=== PATIENT | female | born 1955 | race Hispanic/Latino ===

== ENCOUNTER → 2018-08-05 | Day surgery (SDC) | payer OTHER ==
[~2018-08-05] MED LIST: ALENDRONATE SOD70 MG PO; DOXYCYCLINE HY100 MG PO; FAMOTIDINE20 MG PO; PROPOFOL IV EMULSION 10 MG/ML 50 ML VIAL ONE; SIMVASTATIN40 MG PO
--- OUTSIDE RECORDS SUMMARY | 2018-08-05 06:23 | XMS REPORT ---
Author Organization Unknown Address [address] [place] [address] Phone [phone] Care Team Providers Care Hog Dropper Name Role Phone Lucio Fitch Unavailable Unavailable Allergies Code Code System Name Reaction Severity Status Onset No Known Allergies Active NKDA Medications Name Status Start Date Stop Date alendronate 70 mg tablet Take 1 tablet every week by oral route for 90 days. Active Not available doxycycline hyclate 50 mg capsule Take 1 capsule every day by oral route for 30 days. Completed 08/05/2017 08/05/2017 Estrace 0.01% (0.1 mg/gram) vaginal cream aplicar 1 aplicador dos veces cada semana al acostarse Active Not available fluticasone 50 mcg/actuation nasal spray,suspension aplicar dos esprays en cada fosa nasal geovani vez cada nelly Active Not available ibuprofen 600 mg tablet Take 1 tablet 3 times a day by oral route as needed for 30 days. Completed 08/05/2017 lidocaine 3 %-hydrocortisone 0.5 % rectal cream Completed 10/13/2016 metoclopramide 10 mg tablet Completed 10/29/2016 metronidazole 0.75 % topical cream use as directed Completed 08/05/2017 minocycline 100 mg capsule Completed 04/05/2017 eytobcxy-mbvushyak-fzuayhsx 3.5 mg/mL-10,000 unit/mL-0.1% eye drops use as directed prn Completed 08/05/2017 simvastatin 20 mg tablet Take 1 tablet every day by oral route for 90 days. Active Not available tramadol 50 mg tablet Completed 11/09/2016 Zostavax (PF) 19,400 unit/0.65 mL subcutaneous suspension Completed 10/13/2016 Problems Name Status Onset Date Source Pure Hypercholesterolemia Active 08/22/2015 History Disorder of Bone Unknown 08/22/2015 History Residual Hemorrhoidal Skin Tags Active 08/30/2015 History Senile Osteopenia Active 02/24/2016 Deviated Nasal Septum Active 04/06/2017 Mixed Hyperlipidemia Active 08/05/2017 Procedures Date Name Performed by 10/13/2016 CT, Abdomen, W/o Contrast [facility] ([facility]) [address] [place] [address] (Work Place) 10/20/2016 CT, Abdomen + Pelvis, W/o Contrast [facility] ([facility]) [address] [place] [address] (Work Place) 10/29/2016 US, Abdomen + Pelvis [facility] [address] [facility] [address] [place] [address] (Work Place) 11/04/2016 US, Abdomen + Pelvis [facility] [address] [facility] [address] [place] [address] (Work Place) 11/09/2016 MRI, Liver, W/o Contrast [facility] ([facility]) [address] [place] [address] (Work Place) 04/05/2017 XR, Sinuses [facility] ([facility]) [address] [place] [address] (Work Place) 02/14/2017 Mammogram, Screening Information not available Notes: 08/30/2015: Left breast surgery; Surgery Date: 2001 Partial hysterectomy; Surgery Date: 2001 Lab Results Date Name Specimen Result Interpretation Description Value Range Status Address 04/05/2017 CMP, Serum or Plasma Alt 16 U/L 0-55 U/L [facility]: [address] Ast 19 U/L 5-34 U/L [facility]: [address] Bun 11.5 mg/dL 9.8-20.1 mg/dL [facility]: [address] Alk Phos 63 unit/L 40-150 unit/L [facility]: [address] Glucose 94 mg/dL 70-99 mg/dL [facility]: [address] Albumin 3.7 g/dL 3.5-5.0 g/dL [facility]: [address] Creatinine 0.69 mg/dL 0.57-1.11 mg/dL [facility]: [address] [place] [address], [place] eGFR Non- >60 mL/min/1.73m2 >60 mL/min/1.73m2 [facility]: [address] Total Bilirubin 0.3 mg/dL 0.2-1.2 mg/dL [facility]: [address] eGFR - >60 mL/min/1.73m2 >60 mL/min/1.73m2 [facility]: [address] Sodium 141 mEq/L 136-145 mEq/L [facility]: [address] Potassium 4.1 mEq/L 3.5-5.1 mEq/L [facility]: [address] High Chloride 110 mmol/L 98-107 mmol/L [facility]: [address] Total Protein 6.7 g/dL 6.4-8.3 g/dL [facility]: [address] Calcium 8.8 mg/dL 8.4-10.2 mg/dL [facility]: [address] Low Co2 22.8 mmol/L 23.0-31.0 mmol/L [facility]: [address] Anion Gap 8 calc [facility]: [address] 04/05/2017 Lipid Panel, Serum Hdl 58 mg/dL 40-60 mg/dL [facility]: [address] Triglyceride 130 mg/dL 0-149 mg/dL [facility]: [address] VLDL Calc. 26 mg/dL [facility]: [address] cholesterol/HDL Ratio 2.6 mg/dL [facility]: [address] non-HDL Cholesterol Calc. 94 mg/dL 0-160 mg/dL [facility]: [address] Cholesterol 152 mg/dL 0-199 mg/dL [facility]: [address] LDL Calc. 68 mg/dL 0-130 mg/dL [facility]: [address] [place] [address], [place] 10/29/2016 Carcinoembryonic Ag, Quant, Serum or Plasma Normal Cea 0.6 NG/mL see note: NG/mL [facility]: [address] [place] [address], [place] 10/29/2016 Afp (Alpha-fetoprotein) Tumor Marker, Serum or Plasma Normal Alpha Fetoprotein, Tumor Marker 5.3 NG/mL [facility]: [address] [place] [address], [place] 10/29/2016 Gamma-glutamyl Transferase (Ggt), Serum Normal Ggt 60 U/L 3-65 U/L [facility]: [address] [place] [address], [place] 10/29/2016 CMP, Serum or Plasma Alt 33 U/L 0-55 U/L [facility]: [address] Ast 23 U/L 5-34 U/L [facility]: [address] Bun 18.5 mg/dL 9.8-20.1 mg/dL [facility]: [address] Alk Phos 68 unit/L 40-150 unit/L [facility]: [address] High Glucose 133 mg/dL 70-99 mg/dL [facility]: [address] Albumin 4.1 g/dL 3.5-5.0 g/dL [facility]: [address] Creatinine 0.82 mg/dL 0.57-1.11 mg/dL [facility]: [address] eGFR Non- >60 mL/min/1.73m2 >60 mL/min/1.73m2 [facility]: [address] Total Bilirubin 0.4 mg/dL 0.2-1.2 mg/dL [facility]: [address] eGFR - >60 mL/min/1.73m2 >60 mL/min/1.73m2 [facility]: [address] [place] [address], [place] Sodium 141 mEq/L 136-145 mEq/L [facility]: [address] [place] [address], [place] Potassium 4.4 mEq/L 3.5-5.1 mEq/L [facility]: [address] [facility], [place] High Chloride 108 mmol/L 98-107 mmol/L [facility]: [address] [place] [address], [place] Total Protein 7.2 g/dL 6.4-8.3 g/dL [facility]: [address] [place] [address], [place] Calcium 9.2 mg/dL 8.4-10.2 mg/dL [facility]: [address] [place] [address], [place] Low Co2 22.1 mmol/L 23.0-31.0 mmol/L [facility]: [address] [place] [address], [place] Anion Gap 11 calc [facility]: [address] [facility], [place] 10/13/2016 Culture, Urine Culture, Urine, Routine [facility]: [address] [place] [address], [place] Lipid Panel, Serum Normal Cholesterol, Total 148 mg/dL 125-200 mg/dL [facility]: [address], [place] Normal HDL Cholesterol 58 mg/dL > or=46 mg/dL [facility]: [address], [place] Normal Triglycerides 70 mg/dL <150 mg/dL [facility]: [address], [place] Normal LDL-cholesterol 76 mg/dL (calc) <130 mg/dL (calc) [facility]: [address], [place] Normal Chol/hdlc Ratio 2.6 (calc) < or=5.0 (calc) [facility]: [address], [place] Normal Non HDL Cholesterol 90 mg/dL (calc) [facility]: [address], [place] CMP, Serum or Plasma Normal Glucose 90 mg/dL 65-99 mg/dL [facility]: [address], [place] Normal Urea Nitrogen (BUN) 15 mg/dL 7-25 mg/dL [facility]: [address] [facility] [place], [place] Normal Creatinine 0.60 mg/dL 0.50-0.99 mg/dL [facility]: [address] [facility] [address], [place] Normal eGFR Non-afr. Jamaican 98 mL/min/1.73m2 > or=60 mL/min/1.73m2 [facility]: [address] [facility] [address], [place] Normal eGFR 114 mL/min/1.73m2 > or=60 mL/min/1.73m2 [facility]: [address] [facility] [address], [place] BUN/creatinine Ratio not applicable (calc) 6-22 (calc) [facility]: [address] [facility] [place], [place] Normal Sodium 140 mmol/L 135-146 mmol/L [facility] Lab: [address] [place] [address], [place] Normal Potassium 4.3 mmol/L 3.5-5.3 mmol/L [facility]: [address] [facility] [place], [place] Normal Chloride 108 mmol/L 98-110 mmol/L [facility] Lab: [address] [facility] [place], [place] Normal Carbon Dioxide 20 mmol/L 20-31 mmol/L [facility] Lab: [address] [facility], [place] Normal Calcium 8.9 mg/dL 8.6-10.4 mg/dL [facility] Lab: [address] [facility] [place], [place] Normal Protein, Total 6.7 g/dL 6.1-8.1 g/dL [facility] Lab: [address] [facility], [place] Normal Albumin 4.3 g/dL 3.6-5.1 g/dL [facility] Lab: [address] [facility], [place] Normal Globulin 2.4 g/dL (calc) 1.9-3.7 g/dL (calc) [facility] Lab: [address] [facility] [place], [place] Normal Albumin/globulin Ratio 1.8 (calc) 1.0-2.5 (calc) [facility] Lab: [address] [facility] [place], [place] Normal Bilirubin, Total 0.5 mg/dL 0.2-1.2 mg/dL [facility]: [address], [place] Normal Alkaline Phosphatase 60 U/L 33-130 U/L [facility]: [address] [facility] [place], [place] Normal Ast 20 U/L 10-35 U/L [facility]: [address], [place] Normal Alt 19 U/L 6-29 U/L [facility]: [address] [facility] [place], [place] CBC W/ Auto Diff Normal White Blood Cell Count 5.2 thousand/uL 3.8- 10.8 thousand/uL [facility]: [address] [facility] [place], [place] Normal Red Blood Cell Count 4.80 million/uL 3.80-5.10 million/uL [facility]: [address] [facility] [place], [place] Normal Hemoglobin 14.0 g/dL 11.7-15.5 g/dL [facility]: [address] [place] [address], [place] Normal Hematocrit 43.4 % 35.0-45.0 % [facility]: [address] [facility] [place], [place] Normal Mcv 90.4 fL 80.0-100.0 fL [facility]: [address] [facility] [place], [place] Normal Mch 29.2 pg 27.0-33.0 pg [facility]: [address] [facility] [place], [place] Normal Mchc 32.3 g/dL 32.0-36.0 g/dL [facility]: [address] [place] [address], [place] Normal Rdw 13.6 % 11.0-15.0 % [facility]: [address] [facility] [place], [place] Normal Platelet Count 234 thousand/uL 140-400 thousand/uL [facility]: [address] [facility] [place], [place] Normal Mpv 8.5 fL 7.5-12.5 fL [facility]: [address] [facility] [place], [place] Normal Absolute Neutrophils 3073 cells/uL 7807-9285 cells/uL [facility]: [address] [facility] [place], [place] Normal Absolute Lymphocytes 1747 cells/uL 850-3900 cells/uL [facility]: [address] [place] [address], [place] Normal Absolute Monocytes 276 cells/uL 200-950 cells/uL [facility]: [address], [place] Normal Absolute Eosinophils 73 cells/uL 15-500 cells/uL [facility]: [address], [place] Normal Absolute Basophils 31 cells/uL 0-200 cells/uL [facility]: [address], [place] Normal Neutrophils 59.1 % [facility]: [address], [place] Normal Lymphocytes 33.6 % [facility]: [address], [place] Normal Monocytes 5.3 % [facility]: [address], [place] Normal Eosinophils 1.4 % [facility]: [address], [place] Normal Basophils 0.6 % [facility]: [address], [place] TSH, Serum or Plasma Normal TSH W/reflex to FT4 2.53 mIU/L 0.40-4.50 mIU/L [facility]: [address], [place] Urinalysis, Dipstick Color Color yellow [facility]: [address] [facility] [address], [place] Color Appearance cloudy [facility]: [address] [facility] [address], [place] Color Glucose negative [facility]: [address] [facility] [address], [place] Color Bilirubin negative [facility] [address] [facility] [address], [place] Color Ketones negative [facility]: [address] [facility] [address], [place] Color Specific [place] 1.020 [facility]: [address] [facility] [address], [place] Color Blood negative [facility] [address] [facility] [address], [place] Color PH 6.5 [facility]: [address] [facility] [address], [place] Color Protein negative [facility]: [address] [facility] [address], [place] Color Urobilinogen 0.2 [facility]: [address] [facility] [address], [place] Color Nitrites negative [facility]: [address] [facility] [address], [place] Color Leukocytes negative [facility]: [address] [facility] [address], [place] Past Encounters 08/05/2017 Adult Health Examination; Upper Respiratory Infection; Acute Serous Otitis Media; Deviated Nasal Septum; Senile Osteopenia; Mixed Hyperlipidemia; Menopausal Symptom Lucio Fitch MD: [address] [facility], [address], [place] [address], Ph. 04/05/2017 Senile Osteopenia; Pure Hypercholesterolemia; Pain in Face STANLEY Rowan: [address] [facility], [place] [address], [place] [address], Ph. 11/09/2016 Abnormal Liver Lobulation; Abdominal Pain Isa ILYA CheathamP: [address] [facility], [place] [address], [place] [address], Ph. 11/04/2016 Follicular Cyst of Ovary Lucio Fitch MD: [address] [facility], [address] [address], [place]. 10/29/2016 Follicular Cyst of Ovary; Abnormal Liver Lobulation; Abdominal Pain; Senile Osteopenia; Pure Hypercholesterolemia Isa ILYA CheathamP: [address] [facility], [address] [address], [place]. 10/13/2016 Abdominal Pain Isa ILYA CheathamP: [address] [facility], [address] [address], Ph. 07/09/2016 Adult Health Examination; Senile Osteopenia; Pure Hypercholesterolemia; Depression Screening; Immunization STANLEY Rowan: [address] [facility], [address] [address], [place]. Social History Smoking Status Never Smoker Vaccine List Vaccine Type influenza, seasonal, injectable 02/06/2015 influenza, seasonal, injectable, preservative free 02/01/2014 zoster 07/09/2016 0.65 mL Plan of Care Reminders Provider Appointments None recorded. Lab None recorded. Referral None recorded. Procedures None recorded. Surgeries None recorded. Imaging None recorded. Vitals 08/05/2017 03:45PM 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 Height Weight BMI Blood Pressure 4 ft 10.5 in 126.8 lbs 26 kg/m2 122/79 mm[Hg] 04/05/2017 02:30PM Est Patient Height Weight BMI Blood Pressure 4 ft 10.5 in 125 lbs 25.7 kg/m2 144/89 mm[Hg] 11/09/2016 10:00AM Est Patient Height Weight BMI Blood Pressure 4 ft 10.5 in 121.4 lbs 24.9 kg/m2 134/79 mm[Hg] 10/29/2016 04:00PM Est Patient Height Weight BMI Blood Pressure 4 ft 10.5 in 121.8 lbs 25 kg/m2 135/90 mm[Hg] 10/13/2016 03:30PM Est Patient Height Weight BMI Blood Pressure 4 ft 10.5 in 123.6 lbs 25.4 kg/m2 (1) 158/87 mm[Hg] (2) 148/84 mm[Hg] 07/09/2016 10:00AM [employer]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 Height Weight BMI Blood Pressure 4 ft 10.5 in 121 lbs 24.9 kg/m2 138/76 mm[Hg] 08/30/2015 Height Weight BMI Blood Pressure 4 ft 10.5 in 116.6 lbs 23.95 kg/m2 119/74 mm[Hg] 08/22/2015 Height Weight BMI Blood Pressure 4 ft 10.5 in 117.2 lbs 24.08 kg/m2 127/74 mm[Hg] 06/05/2015 Height Weight BMI Blood Pressure 4 ft 10.5 in 121.2 lbs 24.90 kg/m2 136/70 mm[Hg] 04/01/2015 Height Weight BMI Blood Pressure 4 ft 10.5 in 118.8 lbs 24.40 kg/m2 120/70 mm[Hg] 02/06/2015 Height Weight BMI Blood Pressure 4 ft 10.5 in 119.8 lbs 24.61 kg/m2 126/84 mm[Hg] 10/10/2014 Height Weight BMI Blood Pressure 4 ft 10.5 in 120.2 lbs 24.69 kg/m2 130/70 mm[Hg] 10/03/2014 Height Weight BMI 4 ft 10.5 in 121 lbs 24.86 kg/m2 10/03/2014 Blood Pressure 120/68 mm[Hg] 10/01/2014 Height Weight BMI Blood Pressure 4 ft 10.5 in 122.2 lbs 25.10 kg/m2 130/70 mm[Hg] 08/06/2014 Height Weight BMI Blood Pressure 4 ft 10.5 in 122.2 lbs 25.10 kg/m2 130/76 mm[Hg] 06/25/2014 Height Weight BMI Blood Pressure 4 ft 10.5 in 121.2 lbs 24.90 kg/m2 120/80 mm[Hg] 02/01/2014 Height Weight BMI Blood Pressure 4 ft 10.5 in 120.4 lbs 24.73 kg/m2 150/80 mm[Hg] 09/18/2013 Height Weight 4 ft 10.5 in 120 lbs 06/22/2013 Height Weight 4 ft 10.5 in 120 lbs 01/04/2013 Height Weight 4 ft 10.5 in 119 lbs 07/08/2012 Height Weight 4 ft 10.5 in 120.6 lbs 04/14/2012 Height Weight 4 ft 10.5 in 120.6 lbs 01/19/2012 Height Weight 4 ft 10.5 in 119.8 lbs 08/12/2011 Height Weight 4 ft 10.5 in 121.2 lbs 07/29/2011 Height Weight 4 ft 10.5 in 121.2 lbs 04/22/2011 Height Weight 4 ft 10.5 in 125 lbs 07/29/2010 Height Weight 4 ft 10.5 in 119 lbs 07/22/2010 Height Weight 4 ft 10.5 in 119 lbs 04/24/2010 Height Weight 4 ft 10.75 in 117.8 lbs 02/12/2010 Height Weight 4 ft 10.75 in 120 lbs 02/10/2010 Height Weight 4 ft 10.75 in 120 lbs 09/25/2009 Weight 119.2 lbs 09/14/2008 Height Weight 4 ft 10.75 in 118 lbs 03/07/2008 Weight 112.4 lbs 04/15/2007 Weight 115.9 lbs 2007 Weight 117.2 lbs 09/02/2006 Weight 120.9 lbs 01/08/2006 Weight 118 lbs 07/14/2005 Weight 119 lbs 07/07/2005 Weight 119 lbs 06/29/2005 Weight 115 lbs 06/24/2005 Weight 115 lbs 08/18/2004 Weight 116 lbs 05/05/2004 Weight 116 lbs
[2018-08-05 08:00] VITALS: BP 127/76
== END | disposition home or self-care (01) ==
LOC: OR 06:20
PROVIDERS: ATTEND Internal Medicine Gastroenterology
DX: Z12.11 Encounter for screening for malignant neoplasm of colon (principal); K63.5 Polyp of colon; K64.8 Other hemorrhoids; Z71.3 Dietary counseling and surveillance; E78.00 Pure hypercholesterolemia, unspecified; X58.XXXA Exposure to other specified factors, initial encounter; T78.40XA Allergy, unspecified, initial encounter
CPT/HCPCS: 45380; 45384; 93005